=== PATIENT | male | born 1955 | race Caucasian/White ===

== ENCOUNTER → 2019-04-21 08:13 | Outpatient (BNVA) | payer MEDICARE, OTHER, SELFPAY | PROVIDERS: Family Provider Family Medicine; PCP Family Medicine; Visit Provider Anesthesiology | DX: M48.061 Spinal stenosis, lumbar region without neurogenic claudication (principal); M51.36 Other intervertebral disc degeneration, lumbar region; M25.551 Pain in right hip; F17.210 Nicotine dependence, cigarettes, uncomplicated; Z79.891 Long term (current) use of opiate analgesic | CPT/HCPCS: 99214 ==

== ENCOUNTER → 2019-06-29 12:59 | Outpatient (BNVA) | payer MEDICARE, OTHER, SELFPAY | PROVIDERS: Family Provider Family Medicine; PCP Family Medicine; Visit Provider Anesthesiology | DX: M48.061 Spinal stenosis, lumbar region without neurogenic claudication (principal); M51.36 Other intervertebral disc degeneration, lumbar region; M25.551 Pain in right hip; F17.220 Nicotine dependence, chewing tobacco, uncomplicated; Z79.891 Long term (current) use of opiate analgesic; Z71.6 Tobacco abuse counseling | CPT/HCPCS: 99214 ==

== ENCOUNTER → 2019-10-18 07:51 | Outpatient (BNVA) | payer MEDICARE, OTHER, SELFPAY | PROVIDERS: Family Provider Family Medicine; PCP Family Medicine; Visit Provider Anesthesiology | DX: M51.36 Other intervertebral disc degeneration, lumbar region (principal); M48.061 Spinal stenosis, lumbar region without neurogenic claudication; M54.9 Dorsalgia, unspecified; F17.220 Nicotine dependence, chewing tobacco, uncomplicated; Z79.891 Long term (current) use of opiate analgesic; Z71.6 Tobacco abuse counseling | CPT/HCPCS: 99213; 99214 ==

== ENCOUNTER → 2019-11-22 07:59 | Outpatient (BNVA) | payer MEDICARE, OTHER, SELFPAY | PROVIDERS: Family Provider Family Medicine; PCP Family Medicine; Visit Provider Anesthesiology | DX: M54.41 Lumbago with sciatica, right side (principal); M48.061 Spinal stenosis, lumbar region without neurogenic claudication; M54.9 Dorsalgia, unspecified; M51.36 Other intervertebral disc degeneration, lumbar region; Z96.89 Presence of other specified functional implants; F17.220 Nicotine dependence, chewing tobacco, uncomplicated; Z79.891 Long term (current) use of opiate analgesic | CPT/HCPCS: 99213; 99214 ==

== ENCOUNTER → 2020-01-19 09:12 | Outpatient (BNVA) | payer MEDICARE, OTHER, SELFPAY | PROVIDERS: Family Provider Family Medicine; PCP Family Medicine; Visit Provider Anesthesiology | DX: M51.36 Other intervertebral disc degeneration, lumbar region (principal); M48.061 Spinal stenosis, lumbar region without neurogenic claudication; M54.9 Dorsalgia, unspecified; F17.220 Nicotine dependence, chewing tobacco, uncomplicated; Z79.891 Long term (current) use of opiate analgesic | CPT/HCPCS: 99212; 99214 ==

== ENCOUNTER → 2020-03-19 07:55 | Outpatient (BNVA) | payer MEDICARE, OTHER, SELFPAY | PROVIDERS: Family Provider Family Medicine; PCP Family Medicine; Visit Provider Anesthesiology | DX: M48.061 Spinal stenosis, lumbar region without neurogenic claudication (principal); M51.36 Other intervertebral disc degeneration, lumbar region; M54.9 Dorsalgia, unspecified; F17.220 Nicotine dependence, chewing tobacco, uncomplicated; Z79.891 Long term (current) use of opiate analgesic | CPT/HCPCS: 99212; 99214 ==

== ENCOUNTER → 2020-05-22 07:40 | Outpatient (BNVA) | payer MEDICARE, OTHER, SELFPAY | PROVIDERS: Family Provider Family Medicine; PCP Family Medicine; Visit Provider Anesthesiology | DX: M48.061 Spinal stenosis, lumbar region without neurogenic claudication (principal); M51.36 Other intervertebral disc degeneration, lumbar region; M54.9 Dorsalgia, unspecified; F17.220 Nicotine dependence, chewing tobacco, uncomplicated; Z79.891 Long term (current) use of opiate analgesic | CPT/HCPCS: 99213 ==

== ENCOUNTER → 2020-07-23 07:54 | Outpatient (BNVA) | payer MEDICARE, OTHER, SELFPAY | PROVIDERS: Family Provider Family Medicine; PCP Family Medicine; Visit Provider Anesthesiology | DX: M48.061 Spinal stenosis, lumbar region without neurogenic claudication (principal); M51.36 Other intervertebral disc degeneration, lumbar region; M54.9 Dorsalgia, unspecified; F17.220 Nicotine dependence, chewing tobacco, uncomplicated; Z96.89 Presence of other specified functional implants; Z79.891 Long term (current) use of opiate analgesic | CPT/HCPCS: 99213 ==

== ENCOUNTER → 2020-08-15 10:05 | Outpatient (BNVA) | payer MEDICARE, OTHER, SELFPAY | PROVIDERS: Family Provider Family Medicine; PCP Family Medicine; Visit Provider Anesthesiology | DX: G89.29 Other chronic pain (principal); M54.9 Dorsalgia, unspecified; M48.061 Spinal stenosis, lumbar region without neurogenic claudication; M51.36 Other intervertebral disc degeneration, lumbar region; F17.220 Nicotine dependence, chewing tobacco, uncomplicated; Z79.891 Long term (current) use of opiate analgesic | CPT/HCPCS: 62323; J1040; J3490 ==

== ENCOUNTER → 2020-09-25 07:58 | Outpatient (BNVA) | payer MEDICARE, OTHER, SELFPAY | PROVIDERS: Family Provider Family Medicine; PCP Family Medicine; Visit Provider Anesthesiology | DX: M48.061 Spinal stenosis, lumbar region without neurogenic claudication (principal); M51.36 Other intervertebral disc degeneration, lumbar region; M54.9 Dorsalgia, unspecified; F17.220 Nicotine dependence, chewing tobacco, uncomplicated; Z79.891 Long term (current) use of opiate analgesic | CPT/HCPCS: 99213 ==

== ENCOUNTER → 2020-11-26 08:01 | Outpatient (BNVA) | payer MEDICARE, OTHER, SELFPAY | PROVIDERS: Family Provider Family Medicine; PCP Family Medicine; Visit Provider Anesthesiology | DX: M48.061 Spinal stenosis, lumbar region without neurogenic claudication (principal); M51.36 Other intervertebral disc degeneration, lumbar region; Z87.891 Personal history of nicotine dependence; Z79.891 Long term (current) use of opiate analgesic | CPT/HCPCS: 99213 ==

== ENCOUNTER → 2021-01-23 10:49 | Outpatient (BNVA) | payer MEDICARE, OTHER, SELFPAY | PROVIDERS: Family Provider Family Medicine; PCP Family Medicine; Visit Provider Anesthesiology | DX: Z02.89 Encounter for other administrative examinations (principal); M48.061 Spinal stenosis, lumbar region without neurogenic claudication; M51.36 Other intervertebral disc degeneration, lumbar region; Z79.891 Long term (current) use of opiate analgesic; Z87.891 Personal history of nicotine dependence | CPT/HCPCS: 99213 ==

== ENCOUNTER 2021-02-21 10:18 | Outpatient (CLI) | payer MEDICARE, OTHER, SELFPAY ==
--- NOTE | 2021-02-21 10:30 | XR_ITS ---
WS: [id number] Exam: XR hip RT 2-3V wo/w pel* [id number] Date/Time of Exam: 02/21/2021 10:41 AM Reason For Exam: RIGHT HIP PAIN No acute fracture or dislocation. End stage osteoarthritis with hbgl-th-yiti. Subcortical cyst format ion in the femoral head and the acetabulum. Soft tissues are unremarkable. XR/XR hip RT 2-3V wo/w pel* [id number] IMPRESSION: 1. Advanced osteoarthritis with nolo-qa-mcut articulation. No fracture or dislo cation.
== END 2021-02-21 10:19 | disposition home or self-care (01) ==
PROVIDERS: PCP Family Medicine; Visit Provider Family Medicine
DX: M16.11 Unilateral primary osteoarthritis, right hip (principal)
CPT/HCPCS: 73502

== ENCOUNTER → 2021-04-10 10:39 | Outpatient (BNVA) | payer MEDICARE, OTHER, SELFPAY | PROVIDERS: PCP Family Medicine; Visit Provider Anesthesiology | DX: G89.29 Other chronic pain (principal); M48.061 Spinal stenosis, lumbar region without neurogenic claudication; M51.36 Other intervertebral disc degeneration, lumbar region; M25.551 Pain in right hip; Z79.891 Long term (current) use of opiate analgesic | CPT/HCPCS: 99214 ==

== ENCOUNTER → 2021-05-19 07:58 | Outpatient (BNVA) | payer MEDICARE, OTHER, SELFPAY | PROVIDERS: PCP Family Medicine; Referring Provider Anesthesiology; Visit Provider Specialist | DX: G89.29 Other chronic pain; M16.11 Unilateral primary osteoarthritis, right hip | CPT/HCPCS: 73502 ==

== ENCOUNTER → 2021-06-30 14:06 | Outpatient (BNVA) | payer MEDICARE, OTHER, SELFPAY | PROVIDERS: PCP Family Medicine; Visit Provider Internal Medicine Cardiovascular Disease | DX: I25.10 Atherosclerotic heart disease of native coronary artery without angina pectoris (principal); I10 Essential (primary) hypertension; E78.5 Hyperlipidemia, unspecified | CPT/HCPCS: 99204 ==

== ENCOUNTER 2021-07-15 10:53 | Observation (INO) | payer MEDICARE, OTHER, SELFPAY ==
--- NOTE | 2021-07-10 08:19 | ECG_ITS ---
[facility] Test Date: 2021-07-10 Pat Name: Andrew Salinas Department: Room: Gender: Male Car Parker: : 1955 Requested By: Alvin Pagan Order Number: [id number] Aaron MD: Duncan Nevarez M.D. Measurements Intervals [place] Rate: 87 P: 59 ME: 123 QRS: -26 QRSD: 90 T: 29 QT: 355 QTc: 429 Interpretive Statements SINUS RHYTHM BORDERLINE LEFT AXIS DEVIATION [QRS AXIS < -20] No previous ECG available for comparison Electronically Signed On 07-10-2021 16:16:04 CDT by Duncan Nevarez M.D. [id number]
[2021-07-10 08:31] VITALS: BMI 34.7
[2021-07-10 09:57] LABS: Alanine Aminotransferase 12 U/L (0-41); Albumin Level 4.4 g/dL (3.5-5.2); Alkaline Phosphatase 85 IU/L (40-130); Aspartate Amino Transferase 17 U/L (0-40); Blood Urea Nitrogen 12 mg/dL (8-23); Calcium 9.9 mg/dL (8.5-10.5); Carbon Dioxide 27 mmol/L (22-29); Chloride 101 mmol/L (98-107); Globulin 2.8 g/dL (1.3-4.6); Glomerular Filtration Rate 83.9 mL/min (90-130); Glucose 151 mg/dL (65-115); Osmolality Calculated 295 mOsm/kg (285-295); Sodium 141 mmol/L (136-145); Total Bilirubin 0.6 mg/dL (0.15-1.2); Total Protein 7.2 g/dL (6.6-8.7)
[2021-07-10 10:10] LABS: Basophils # 0.1 10^3/uL (0.0-0.1); Basophils % 0.7 %; Eosinophils # 0.2 10^3/uL (0.0-0.8); Eosinophils % 2.3 %; Hematocrit 48.1 % (42.0-52.0); Hemoglobin 15.6 g/dL (11.7-16.6); Lymphocytes # 1.4 10^3/uL (0.8-4.8); Lymphocytes % 18.1 %; Mean Corpuscular HGB Conc 32.4 g/dL (30.0-36.0); Mean Corpuscular Hemoglobin 29.7 pg (28.0-34.0); Mean Corpuscular Volume 91.6 fl (80-94); Mean Platelet Volume 10.9 fL (7.4-10.4); Monocytes # 0.8 10^3/uL (0.2-0.9); Monocytes % 10.5 %; Neutrophils # 5.21 10^3/uL (1.8-7.7); Neutrophils % 67.9 %; Nucleated Red Blood Cells % 0 %; Platelet Count 295 10^3/cmm (130-400); Red Blood Count 5.25 10^6/uL (4.1-5.3); Red Cell Distribution Width 13.2 % (12.1-15.1); White Blood Count 7.7 10^3/uL (4.0-10.0)
[2021-07-10 10:31] LABS: Add Urine Microscopic? YES; Bacteria Urine TRACE /hpf; Bilirubin Urine Neg (Negative); Blood Urine 2+ (Negative); Glucose Urine UA Norm (Normal); Ketones Urine Negative (Negative); Leukocyte Esterase Urine Negative (Negative); Mucus Urine TRACE /hpf; Nitrate Urine Negative (Negative); Protein Urine Neg (Negative); Specific Gravity, Urine 1.025 (1.005-1.030); Squamous Epithelial Cell Urine 0-4 /hpf (0-5); Urine Appearance Clear (CLEAR); Urine Color Yellow (Yellow); Urobilinogen Urine Norm (Negative); WBC Urine RARE /hpf (0-5); pH Urine 5 (5-7)
--- NOTE | 2021-07-10 16:56 | P.ANESASSM_ITS ---
Pre-Anesthetic Assessment Height/Weight: Height 1.63 m Weight 91.626 kg Preop Diagnosis: Primary osteoarthritis of Right Hip Operation Date: 07/15/21 07:00 Proposed Procedures p Total Hip [id number]/right hip osteoarthristis M16.9(Right) - Radha Carter MD Was Beta Rikki taken within 24 hours: Yes Was Clonidine taken within 24 hours: N/A Social Tobacco (Chewing tobacco ) and No alcohol Exam alert, oriented x 3, clear to auscultation bilaterally and regular rate & rhythm Airway Submandibular: within normal limits Cervical ROM: Other (Limited ROM ) Mallampati: Class II Dentition: chipped Comments: Comments: Missing teeth Poor dentition History/ROS No significant complaints CV/HEM Coronary Artery Disease (s/p cardiac stents ) and Myocardial Infarction (Hx of [place] in 2007 ) METS > 4 Dyslipidemia EKG 07/10/21 ?? Interpretive Statements SINUS RHYTHM BORDERLINE LEFT AXIS DEVIATION? [QRS AXIS < -20] No previous ECG available for comparison Electronically Signed On 07-10-2021 16:16:04 CDT by Duncan Nevarez M.D. [email or web address] None reported Hepatic None reported GI Gastroesophageal Reflux Disease Metabolic None [place] [facility] [place] Chronic hip pain Spinal cord stimulator Neuropsych None reported Anesthetic Plan ASA status: 3 (66 year old male w/ hx of CAD with good functional capacity s/p CA stents, chewing tobacco use, DLD , OA, and DDD. ) Anesthesia: Anesthesia Evaluation Other: We discussed risk and benefits of general vs spinal anesthesia including DVT risk, infection, paralysis/catastrophic nerve injury, back bruising/pain, PDPH, conversion to general in case of spinal, PONV, sore throat (sometimes severe), corneal abrasion, positioning and peripheral nerve injuries, life threatening allergic reaction, post operative ICU admission requiring prolonged intubation, stroke, heart attack, , post operative delirium and/or post operative cognitive decline, and rare incidences of recall (under general anesthesia). Patient prefers general anesthesia. Risk of > 500 ml blood loss (7ml/kg in children): No Medications/Allergies Home Medications Medication Instructions Recorded Confirmed Last Taken Type aspirin 81 mg tablet,delayed 81 mg PO QDAY 04/20/19 07/03/21 07/09/21 History release (Adult Aspirin Regimen) atenolol 100 mg tablet 100 mg PO QAM 04/20/19 07/10/21 Unknown History atorvastatin 40 mg tablet (Lipitor) 40 mg PO QDAY 04/20/19 07/10/21 Unknown History clopidogrel 75 mg tablet 75 mg PO QDAY 04/20/19 07/10/21 07/09/21 History diphenhydramine HCl 25 mg capsule 25 mg PO DAILY PRN cap 04/20/19 07/10/21 U nknown History (Allergy (diphenhydramine)) amlodipine 10 mg-olmesartan 40 mg 1 tab PO QDAY 04/21/19 07/10/21 07/09/21 History tablet morphine 30 mg tablet,extended 30 mg PO Q8H 30 Days #90 tab 04/10/21 07/10/21 Unknown Rx release morphine 30 mg tablet,extended 30 mg PO Q8H 30 Days #90 tab 04/10/21 07/10/21 Unknown Rx release metoprolol succinate 100 mg 100 mg PO DAILY tab 06/30/21 07/10/21 Unknown History tablet,extended release 24 hr metformin 1,000 mg tablet 1,000 mg PO BID 07/10/21 07/10/21 Unknown History Allergies Allergy/AdvReac Type Severity Reaction Status Date / Time No Known Allergies Allergy Verified 07/03/21 09:05 PFS Anesthesia Medical History Chronic right hip pain DDD (degenerative disc disease), lumbar Encounter for long-term use of opiate analgesic Spinal cord stimulator status Spinal stenosis of lumbar region Tobacco chew use Surgical History S/P insertion of spinal cord stimulator DR. JIMENEZ 03/21/2012 S/P knee replacement LEFT-2014 S/P knee surgery Status post lumbar laminectomy Status post lumbar spine surgery for decompression of spinal cord DR JIMENEZ 09/22/2012 L3-L4, L4-L5 Family History Grandmother Dementia Father Lung disease Suicide Family/Other Suicide Other Hypertension Denies family history of Diabetes CAD (coronary artery disease) Clotting disorder Chronic kidney disease (CKD) Anesthesia complication Bleeding disorder Cancer Stroke Social History Smoking and tobacco status: never smoked Alcohol intake: never Marital status: History of recent travel: No Data Anesthesia : 07/10/21 08:50 07/10/21 08:50 Short CBC 07/10/21 Range/Units 08:50 WBC 7.7 (4.0-10.0) 10^3/uL Hgb 15.6 (11.7-16.6) g/dL Hct 48.1 (42.0-52.0) % MCV 91.6 (80-94) fl Plt Count 295 (130-400) 10^3/cmm Neut % (Auto) 67.9 % Neut # (Auto) 5.21 (1.8-7.7) 10^3/uL BMP 07/10/21 08:50 Sodium 141 Potassium 4.0 Chloride 101 Carbon Dioxide 27 BUN 12 Creatinine 0.9 Glucose 151 H Calcium 9.9 Liver Function 07/10/21 Range/Units 08:50 Total Bilirubin 0.6 (0.15-1.2) mg/dL AST 17 (0-40) U/L ALT 12 (0-41) U/L Alkaline Phosphatase 85 (40-130) IU/L Albumin 4.4 (3.5-5.2) g/dL Urine 07/10/21 Range/Units 09:10 Urine Color Yellow (Yellow) Urine Appearance Clear (CLEAR) Urine pH 5 (5-7) Ur Specific Spencer 1.025 (1.005-1.030) Urine Protein Neg (Negative) Urine Glucose (UA) Norm (Normal) Urine Ketones Negative (Negative) Urine Nitrate Negative (Negative) Urine Bilirubin Neg (Negative) Ur Leukocyte Esterase Negative (Negative) Urine RBC None (0-2) /hpf Urine WBC Rare (0-5) /hpf Cardiac Studies: No Data to Display
[2021-07-15] VITALS (26 sets, daily range): BP systolic 93–146; BP diastolic 56–100; PULSE 70–100; RESP 14–19; TEMP 36.1–37.3; O2SAT 91–100
[2021-07-15 06:27] LABS: Glucose Point of Care 153 mg/dL (70-110)
[2021-07-15] MEDS: sodium chloride 0.9% 1,000 ML 30 ML IV (06:36)
[2021-07-15] MEDS: acetaminophen 1,000 MG/100 ML PIGGYBACK 400 MG IV ×3 (06:36→21:38)
[2021-07-15] MEDS: CELEcoxib 200 mg Capsule 400 MG PO (06:37)
--- NOTE | 2021-07-15 06:53 | W.PM.OPSUD ---
Surgery/Procedure H&P Update DATE OF PROCEDURE: July 15, 2021 DATE H&P PERFORMED: 07/03/21 H&P UPDATE INFORMATION: I have reviewed H&P completed within last 30 days, I have examined patient prior to procedure, No changes to prior documentation and H&P is in [facility] EMR on date indicated PREOP DIAGNOSIS: Primary osteoarthritis of Right Hip PLANNED PROCEDURE: Operation Date: 07/15/21 07:00 Proposed Procedures p Total Hip [id number]/right hip osteoarthristis M16.9(Right) - Radha Carter MD Related Problem List Diagnoses (1) Primary osteoarthritis of right hip:
--- NOTE | 2021-07-15 07:25 | P.ANESUD_ITS ---
Pre-Anesthetic Update Pre-Anesthetic Assessment: Date of Surgery/Procedure: 07/15/21 Preop Deb gnosis: Primary osteoarthritis of Right Hip Proposed Procedure: Operation Date: 07/15/21 07:00 Proposed Procedures p Total Hip [id number]/right hip osteoarthristis M16.9(Right) - Radha Carter MD Any changes to Pre-Anesthetic Assessment?: No Last Intake: Intake Last Liquid Date 07/14/21 Last Liquid Time 18:00 Last Solid Date 07/14/21 Last Solid Time 18:00 Vitals: Temperature 97.7 F 07/15/21 06:11 Temperature Source Temporal Artery S can 07/15/21 06:11 Pulse Rate 70 07/15/21 06:11 Pulse Rhythm 07/15/21 06:11 Pulse Strength 3+ Normal 07/15/21 06:11 Respiratory Rate 18 07/15/21 06:11 Blood Pressure 109/69 07/15/21 06:11 Blood Pressure Donna n 82 07/15/21 06:11 Pulse Oximetry 100 07/15/21 06:11 Oxygen Delivery Me thod 07/15/21 06:11 Exam: Pre-Anes Outpt Exam: alert, oriented x 3, clear to auscultation bilaterally and regular rate & rhythm Cardiac Studies: No Data to Display
[2021-07-15] MEDS: vancomycin 1,000 MG SDV 1000 MG XX (08:01)
[2021-07-15] MEDS: ceFAZolin 1,000 mg SDV 1000 MG IRRIGATION (08:03)
--- NOTE | 2021-07-15 10:47 | XRR_ITS ---
PROCEDURE INFORMATION: Exam: XR Pelvis Exam date and time: 07/15/2021 11:04 AM Age: 66 years old Clinical indication: Device placement; Other: RT migue; Prior surgery; Surgery date: Post-operative (0-2 days); Additional info: S/P RT migue TECHNIQUE: Imaging protocol: XR pelvis. Views: 1 or 2 view. COMPARISON: CR XR hip RT 2-3V wo/w pel* [id number] 05/19/2021 8:07 AM FINDINGS: Tubes, catheters and devices: Stable right pacemaker. Bones/joints: Interval right total hip replacement with postoperative soft tissue emphysema. Soft tissues: See Bones/joints finding. XR/XR pelvis 1-2V* [id number] IMPRESSION: Interval right total hip replacement with postoperative soft tissue emphysema.
--- NOTE | 2021-07-15 10:55 | P.OP_ITS ---
Operative Report Date of procedure: July 15, 2021 Pre-op diagnosis: Primary osteoarthritis of Right Hip with large osteophytes and contracture both hip and knee Post-op diagnosis: Primary osteoarthritis of Right Hip with large osteophytes and contracture both hip and knee Post-op findings: Severe deformity of the femoral head with osteophytes and contracture of the hip. Also, flexion contracture of the knee. Procedure done: Complex Right total hip arthroplasty Implants: The [employer] total hip system with the following implants: A 52 mm by E Trident II solid back acetabular shell, an MDM cementless liner 42 mm inner diameter by E alpha code and Accolade II size 5 with 127 degree neck angle hip stem with a 28 mm outer diameter +4 mm neck offset and a yazdanism X3 insert size 28 mm inner diameter by 42E Specimens removed/disposition: Femoral head, disposed of Surgeon: Radha Carter Engineering Laboratory Technician: [facility] operating room technicians Anesthesia: General (Intubated, ASA 3) Estimated blood loss (mL): 500 IV fluids (mL): 1,500 Urine output (mL): 300 Complications: None Findings: Severe osteoarthritis with deformity of the femoral head, large osteophytes, almost zero motion of the hip. Inability to fully extend the knee. Following the surgical procedure, the hip was stable at 90 degrees of flexion with 70 degrees of internal rotation and 20 degrees of adduction. It was also stable to external rotation and toe hang. Condition: stable Disposition: PACU (Then to floor for postoperative rehabilitation) Brief History: This 66-year-old gentleman presented with complaints of inability to ambulate. He had severe degenerative osteoarthritis of the right hip with hip flexion contracture, large osteophytes, and a knee flexion contracture as well. Activities of daily living are severely limited. After discussion, the patient wished to proceed with total hip arthroplasty. Risks and complications were discussed with him. Preoperatively, consents were signed. Questions were answered, and the surgical procedure was scheduled. Procedure: Patient was brought to the operating theater.? He was transferred to the operating room table and subsequently administered general intubated, ASA 3.? Fo llowing administration of adequate anesthesia, the patient was placed in full lateral position and held in position with a pegboard.? The patient's right lower extremity was then prepped and draped in usual fashion utilizing DuraPrep.? It was draped free.? Following prepping and draping, a surgical pause was performed. At the time of surgical pause, we identified the site and side of surgery.? We also identified the patient and preoperative surgical markings.? Confirmation was made of equipment availability.? Additionally, the patient's preoperative IV antibiotic, Ancef 2 g, was confirmed as being given in a timely fashion and being the appropriate antibiotic.? He received TXA 1 g preoperatively as well. Following the surgical pause, an incision was made centering over the patient's greater trochanter continuing proximally and distally as necessary to allow access to the hip joint.? Dissection continued through skin and soft tissues using a scalpel, and hemostasis was obtained using electrocautery. The tensor fascia margoth was identified and incised longitudinally.? Sciatic nerve was identified and protected throughout the surgical procedure.? A Charnley U retractor was placed after the tensor fascia margoth had been incised longitudinally, and the sciatic nerve had been identified.? The piriformis muscle was identified and tagged. Piriformis muscle along with the remaining short external rotators were then incised from the posterior aspect of the hip joint. These were retracted posteriorly. ? The capsule was entered in a T-type fashion with the edges being tagged. Evaluation of the acetabulum demonstrated that there were large osteophytes circumferentially about the femoral head. The hip was unable to be dislocated or even moved much secondary to these osteophytes. An osteotome was used to remove these large osteophytes. The hip was then dislocated. Following hip dislocation, a femoral neck osteotomy was accomplished in the appropriate position. We then evaluated the acetabulum. The femur was retracted anteriorly.? Soft tissues were retracted and the labrum and further osteophytes were removed. We then began reaming.? We deepened the acetabulum utilizing a smaller reamer.? Evaluation of the acetabulum was accomplished, and we were able to ream to 51 mm to allow for a size 52 mm acetabular shell. The acetabular component was impacted into position. It was n oted that the acetabulum matched the bony anatomy, but there were still osteophytes posteriorly. These were left in place, however.? The cup was noted to seat nicely and had good fixation upon impact.? The MDM cementless liner was impacted into position and care was taken to assure that it completely seated.? Also, we confirmed that the acetabular insert was completely seated prior to addressing the femur. Attention was directed to the proximal femur.? The proximal femur was lifted out of the wound with difficulty.? A canal finder was passed, and we then used the reamer to lateralize.? We then began broaching. We broached sequentially and had excellent fit and fill with the size 6 Accolade II 127 degree femoral component.? A trial reduction was accomplished with a -4 mm offset femoral head once the size 6 broach was placed in position.? We then increased to a standard offset followed by a +4 mm offset. With this sequential increase in size, we were able to evaluate soft tissue tension. The +4 was felt to reestablish leg length and also give the best stability. The patient was stable with this construct, and it was not felt that we had increased her leg length.? With this in place, we had the above stabilities, and at that time, we felt that we had restored leg lengths.? We also felt that we had excellent stability noted above. Therefore, trial components were removed after the hip was dislocated.? The size 6 Accolade II 127 degree neck angle hip stem was impacted into position without difficulty and onto this was placed a +4 mm offset by 28 mm outer diameter femoral head inside of the MDM size 42E insert with a 28 mm inner diameter.? With this construct, we had the above-noted stability.? The stem was noted to seat nicely prior to placement of the femoral head.? The wound was copiously irrigated with Betadine.? At this time, with all components in appropriate position, the hip was reduced.? Following reduction of the prosthesis once again, we confirmed the stability of the hip.? Leg lengths were also felt to be satisfactory. Being satisfied with the prosthesis, attention was directed to closure.? Closure was accomplished with 0 Vicryl in the capsular tissues.? Piriformis was reattached with 0 Vicryl as well.? Tensor fascia margoth was closed with 0 Vicryl in an interrupted fashion.? The subcutaneous tissues were closed with 2-0 Monocryl.? Vancomycin powder and a Gelfoam thrombin mixture was placed into the wound as well.? The skin was closed with 4-0 Monocryl followed by Dermabond, Prineo, and OpSite.? The patient was placed in an abduction pillow.? He was returned the Recovery Room in a satisfactory condition and will be discharged to the floor for postoperative rehabilitation and pain management.? There were no complications. Related Problem List Diagnoses (1) Primary osteoarthritis of right hip:
--- NOTE | 2021-07-15 11:09 | SUR.PHASEI ---
1045 SCD TO LEFT LOWER EXTREMITY ON AND WORKING
[2021-07-15] MEDS: fentaNYL 50 mcg/mL INJ 2mL IVP (11:17)
[2021-07-15] MEDS: chlorhexidine gluconate 0.12% Btl 473 mL 30 ML MUCOUS MEM ×3 (12:48→20:19)
[2021-07-15] MEDS: amlodipine 10 mg Tablet PO (13:10)
[2021-07-15] MEDS: losartan 50 mg Tablet 100 MG PO (13:10)
[2021-07-15] MEDS: morphine IR 15 mg Tablet 30 MG PO ×2 (14:19→20:18)
--- NOTE | 2021-07-15 15:27 | ANE.PACU2 ---
Inpatient post-anesthesia follow up: Airway intact: Yes Vital signs: Temperature 98.5 F Pulse Rate 86 Respiratory Rate 18 Blood Pressure 111/70 Pulse Oximetry 99 Oxygen Delivery Me thod Nasal Cannula Oxygen Flow Rate 2 Fraction of Inspir ed Oxygen Hydration adequate: Yes Nausea and vomiting: No Pain level: 3 Mental status: Baseline
[2021-07-15] MEDS: mupirocin oint 22 gm 1 APPLIC NASAL (17:33)
[2021-07-15] MEDS: calcium carbonate 500 mg Chew Tablet 1000 MG PO (17:33)
[2021-07-15] MEDS: sennosides-docusate Tablet 2 TAB PO (17:34)
[2021-07-15] MEDS: CELEcoxib 200 mg Capsule PO (17:34)
[2021-07-15] MEDS: metformin 500 mg Tablet 1000 MG PO (17:34)
[2021-07-15] MEDS: iron polysaccharide complex 150 mg Capsule PO (17:34)
[2021-07-15] MEDS: oxyCODONE 5 mg IR Tab/Cap PO (17:37)
--- NOTE | 2021-07-15 18:40 | PC.NURSE ---
Patient arrived floor post procedure with c/o pain and wanting catheter out. He has been demanding to have catheter removed. Called physician and received orders. Will report to oncoming nurse.
[2021-07-15 19:50] LABS: Bilirubin Urine Neg (Negative); Blood Urine 3+ (Negative); Glucose Urine UA 2+ (Normal); Ketones Urine 1+ (Negative); Nitrate Urine Negative (Negative); Protein Urine Neg (Negative); Specific Gravity, Urine 1.015 (1.005-1.030); Urine Appearance Cloudy (CLEAR); Urine Color Yellow (Yellow); pH Urine 5 (5-7)
[2021-07-15 19:51] LABS: Add Urine Culture? Yes; Add Urine Microscopic? YES; Amorphous Sediment Urine 3+ /hpf; Bacteria Urine TRACE /hpf; Leukocyte Esterase Urine 1+ (Negative); Squamous Epithelial Cell Urine 0-4 /hpf (0-5); Urobilinogen Urine Norm (Negative); WBC Urine >100 /hpf (0-5)
[2021-07-15] MEDS: atorvastatin 40 mg Tablet PO (20:17)
[2021-07-15] MEDS: ciprofloxacin 500 mg Tablet 750 MG PO (20:18)
[2021-07-16] VITALS (7 sets, daily range): BP systolic 94–117; BP diastolic 60–66; PULSE 77–105; RESP 17–18; TEMP 36.7–36.8; O2SAT 86–97
[2021-07-16 02:03] LABS: Basophils % 0.1 %; Hematocrit 35.4 % (42.0-52.0); Hemoglobin 11.5 g/dL (11.7-16.6); Lymphocytes # 1.1 10^3/uL (0.8-4.8); Lymphocytes % 6.8 %; Mean Corpuscular HGB Conc 32.5 g/dL (30.0-36.0); Mean Corpuscular Hemoglobin 29.9 pg (28.0-34.0); Mean Corpuscular Volume 91.9 fl (80-94); Monocytes # 1.5 10^3/uL (0.2-0.9); Neutrophils # 13.98 10^3/uL (1.8-7.7); Neutrophils % 83.7 %; Nucleated Red Blood Cells % 0 %; Platelet Count 246 10^3/cmm (130-400); Red Blood Count 3.85 10^6/uL (4.1-5.3); Red Cell Distribution Width 13.2 % (12.1-15.1); White Blood Count 16.7 10^3/uL (4.0-10.0)
[2021-07-16 02:31] LABS: Anion Gap 18.7 (5-19); Blood Urea Nitrogen 27 mg/dL (8-23); Calcium 8.8 mg/dL (8.5-10.5); Carbon Dioxide 23 mmol/L (22-29); Chloride 101 mmol/L (98-107); Glomerular Filtration Rate 50.4 mL/min (90-130); Glucose 225 mg/dL (65-115); Osmolality Calculated 298 mOsm/kg (285-295); Potassium 4.7 mmol/L (3.5-5.1); Sodium 138 mmol/L (136-145)
[2021-07-16] MEDS: CELEcoxib 200 mg Capsule PO (05:31)
[2021-07-16] MEDS: acetaminophen 1,000 MG/100 ML PIGGYBACK 400 MG IV (05:31)
[2021-07-16] MEDS: calcium carbonate 500 mg Chew Tablet 1000 MG PO (09:04)
[2021-07-16] MEDS: metoprolol succinate ER (24 HR) 100 mg Tablet PO (09:04)
[2021-07-16] MEDS: multivitamin therapeutic Tablet 1 TAB PO (09:04)
[2021-07-16] MEDS: aspirin 325 mg EC Tablet PO (09:04)
[2021-07-16] MEDS: amlodipine 10 mg Tablet PO (09:05)
[2021-07-16] MEDS: losartan 50 mg Tablet 100 MG PO (09:05)
[2021-07-16] MEDS: morphine IR 15 mg Tablet 30 MG PO (09:05)
[2021-07-16] MEDS: metformin 500 mg Tablet 1000 MG PO (09:06)
[2021-07-16] MEDS: clopidogrel 75 mg Tablet PO (09:06)
[2021-07-16] MEDS: cholecalciferol (vitamin D3) 1,000 unit Tablet 1000 UNIT PO (09:06)
[2021-07-16] MEDS: iron polysaccharide complex 150 mg Capsule PO (09:06)
[2021-07-16] MEDS: ciprofloxacin 500 mg Tablet 750 MG PO (10:07)
[2021-07-16] MEDS: chlorhexidine gluconate 0.12% Btl 473 mL 30 ML MUCOUS MEM (10:10)
--- NOTE | 2021-07-16 11:21 | PC.CHAP ---
Pastoral Care Encounter/Spiritual Assessment Type of Contact [] Declined atg architect visit [] Patient/Family/Request visit [] Outpatient visit [] Follow-up visit [] Physician referral [] Code/Alert [x] Routine visit [] Staff referral [] Actively dying [] Patient sleeping [] Family support [] [x] Out of room [] Palliative care [] [] Receiving care in room [] Pre-surgical visit [] Trauma [] Long length of stay [] ICU visit [] Other: Relational/Emotional Strength [] Patient feels connected with others/family/visitors/staff [] Distress [] Loneliness/isolation [] Abandonment Spirituality of Patient [] Person of Kassie [] Attends Pentecostal of their [place]assie [] Believes in Prayer [] Reads Bible or Anabaptist materials [] There are Spiritual issues to be addressed [employer] Interventions [] Prayer [] Active listening [] Non-anxious presence [] Spiritual/emotional support [] Crisis/trauma care [] Spiritual counseling [] Bereavement support [] Provided bereavement packet [] Provided Bible/devotional materials [] Provided toy/stuffed animal, coloring book to patient or family member [] Provided Communion [] Anointing/[place] [] Salvation [] Completed spiritual assessment [] Other: Impact on Illness or Injury [] Angry [] Fearful [] Anxious [] Often cries [] Exhaustion [] Unable to work [] Unable to attend amish [] Unable to walk/stand [] Unable to read [] Unable to drive [] Unable to eat/drink [] Unable to sleep [] Unable to be with family [] Patient intubated [] Other: Summary Time spent with patient
[2021-07-16] MEDS: cefTRIAXone 1,000 MG in sodium chloride 0.9% (plus) 50 ML 100 MG IV (12:05)
[2021-07-16 12:53] LABS: Urine Appearance Hazy (CLEAR); Urine Color Yellow (Yellow)
[2021-07-16 12:54] LABS: Bilirubin Urine Neg (Negative); Blood Urine 2+ (Negative); Glucose Urine UA 2+ (Normal); Ketones Urine 1+ (Negative); Nitrate Urine Negative (Negative); Protein Urine Neg (Negative); pH Urine 5 (5-7)
[2021-07-16 12:55] LABS: Add Urine Microscopic? YES; Leukocyte Esterase Urine 2+ (Negative); Urobilinogen Urine Norm (Negative)
[2021-07-16 13:01] LABS: Mucus Urine 1+ /hpf; Renal Epithelial Cells Urine N /hpf
[2021-07-16 13:02] LABS: Add Urine Culture? No; Amorphous Sediment Urine TRACE /hpf; Other Casts Urine N /lpf; Other Crystals Urine N /hpf; Other Sediment, Urine N; Uric Acid Crystals Urine N /hpf
--- NOTE | 2021-07-16 13:46 | PM.DCS ---
Discharge Providers Date of Admission: 07/15/21 10:53 Date of Discharge: July 16, 2021 Attending Provider at Admission: Radha Carter MD Attending Provider at Discharge: Radha Carter MD Primary Care Provider: Kleber Angeles MD Diagnoses at Discharge Discharge Diagnosis (1) Primary osteoarthritis of right hip: Status: Acute (2) S/P total right hip arthroplasty: Status: Acute Permanent problem details: Date of procedure: July 15, 2021 Diagnosis: Primary osteoarthritis of Right Hip with large osteophytes and contracture both hip and knee Procedure done: Complex Right total hip arthroplasty Implants: The [employer] total hip system with the following implants: A 52 mm by E Trident II solid back acetabular shell, an MDM cementless liner 42 mm inner diameter by E alpha code and Accolade II size 5 with 127 degree neck angle hip stem with a 28 mm outer diameter +4 mm neck offset and a scientologist X3 insert size 28 mm inner diameter by 42E Reason for Visit Reason for Visit: M16.9/ osteoarthritis right hip Brief History: This 66-year-old gentleman presented with complaints of inability to ambulate.? He had severe degenerative osteoarthritis of the right hip with hip flexion contracture, large osteophytes, and a knee flexion contracture as well.? Activities of daily living are severely limited.? After discussion, the patient wished to proceed with total hip arthroplasty.? Risks and complications were discussed with him.? Preoperatively, consents were signed.? Questions were answered, and the surgical procedure was scheduled. Hospital Course Hospital Course This 66-year-old gentleman was admitted under observation status following same-day surgery for right total hip arthroplasty. On the first postoperative day, the patient was comfortable. He was neurologically intact. He was ambulatory. He had appropriate equipment at home, and he felt ready for discharge. Physical therapy was in agreement. The patient's diet was benign without significant swelling. He was neurologically intact. He was discharged home to follow-up with me in the office as previously scheduled. Physical Exam Const: COMMON NORMALS: no acute distress, average body habitus, patient oriented x3 and alert GENERAL APPEARANCE: cooperative and comfortable ORIENTATION/CONSCIOUSNESS: Yes awake HENMT: COMMON NORMALS: normocephalic and atraumatic HEAD & SCALP: normocephalic and atraumatic Eye: GENERAL EYE: appearance normal, both eyes and all related structures Chest: COMMONS NORMALS: normal inspection of the chest Resp: COMMON NORMALS: normal respiratory effort EFFORT & INSPECTION: Yes able to speak in complete sentences and Yes symmetric chest movement Extremity: RIGHT LOWER EXTREMITY: Yes hip joint Right hip: Yes inspection (Dressing dry and intact.), Yes palpation (No significant swelling or pain.), Yes ROM (Not evaluated secondary to surgery.) and Yes neurovascular exam (Intact distally.) Neuro: COMMON NORMALS: patient oriented x3 SENSORIUM/ORIENTATION: Yes alert Psych: COMMON NORMALS: mental status grossly normal APPEARANCE: Yes grossly normal ATTITUDE: Yes calm and Yes engaged ATTENTION/CONCENTRATION: Yes attention grossly intact Skin: COMMON NORMALS: no rashes or lesions noted GENERAL SKIN EXAM: no rashes or lesions noted Urinary Catheter Management: Islas: Cath Placed During This Visit: yes, but has since been removed by the nurse Reason for Continuing Indwelling Catheter: Acute Urinary Retention or Obstruction Urinary Catheter Date of Insertion: 07/15/21 Urinary Catheter Time of Insertion: 07:15 Date Urinary Catheter Removed: 07/16/21 Time Urinary Catheter Discontinued: 03:30 Discharge Data Studies Completed and Pending Completed Studies During Hospitalization Category Date Time Status XR pelvis 1-2V* [id number] Routine Exams 07/15/21 10:47 Completed Radiology Impressions Pelvis X-Ray 07/15/21 10:47 IMPRESSION: Interval right total hip replacement with postoperative soft tissue emphysema. Laboratory Results WBC 16.7 10^3/uL (4.0-10.0) H 07/16/21 01:25 RBC 3.85 10^6/uL (4.1-5.3) L 07/16/21 01:25 Hgb 11.5 g/dL (11.7-16.6) L 07/16/21 01:25 Hct 35.4 % (42.0-52.0) L 07/16/21 01:25 MCV 91.9 fl (80-94) 07/16/21 01:25 MCH 29.9 pg (28.0-34.0) 07/16/21 01:25 MCHC 32.5 g/dL (30.0-36.0) 07/16/21 01:25 RDW 13.2 % (12.1-15.1) 07/16/21 01:25 Plt Count 246 10^3/cmm (130-400) 07/16/21 01:25 MPV 11.0 fL (7.4-10.4) H 07/16/21 01:25 Neut % (Auto) 83.7 % 07/16/21 01:25 Lymph % (Auto) 6.8 % 07/16/21 01:25 [place] % (Auto) 9.0 % 07/16/21 01:25 Eos % (Auto) 0.0 % 07/16/21 01:25 Baso % (Auto) 0.1 % 07/16/21 01:25 Neut # (Auto) 13.98 10^3/uL (1.8-7.7) H 07/16/21 01:25 Lymph # (Auto) 1.1 10^3/uL (0.8-4.8) 07/16/21 01:25 [place] # (Auto) 1.5 10^3/uL (0.2-0.9) H 07/16/21 01:25 Eos # (Auto) 0.0 10^3/uL (0.0-0.8) 07/16/21 01:25 Baso # (Auto) 0.0 10^3/uL (0.0-0.1) 07/16/21 01:25 Nucleated RBC % (auto) 0 % 07/16/21 01:25 Nucleated RBCs # 0.0 /100WBC 07/16/21 01:25 Sodium 138 mmol/L (136-145) 07/16/21 01:25 Potassium 4.7 mmol/L (3.5-5.1) 07/16/21 01:25 Chloride 101 mmol/L (98-107) 07/16/21 01:25 Carbon Dioxide 23 mmol/L (22-29) 07/16/21 01:25 Anion Gap 18.7 (5-19) 07/16/21 01:25 BUN 27 mg/dL (8-23) H 07/16/21 01:25 Creatinine 1.4 mg/dL (0.7-1.2) H 07/16/21 01:25 GFR Calculation 50.4 mL/min (90-130) L 07/16/21 01:25 Glucose 225 mg/dL (65-115) H 07/16/21 01:25 POC Glucose 153 mg/dL (70-110) H 07/15/21 06:24 Calculated Osmolality 298 mOsm/kg (285-295) H 07/16/21 01:25 Calcium 8.8 mg/dL (8.5-10.5) 07/16/21 01:25 Total Bilirubin 0.6 mg/dL (0.15-1.2) 07/10/21 08:50 AST 17 U/L (0-40) 07/10/21 08:50 ALT 12 U/L (0-41) 07/10/21 08:50 Alkaline Phosphatase 85 IU/L (40-130) 07/10/21 08:50 Total Protein 7.2 g/dL (6.6-8.7) 07/10/21 08:50 Albumin 4.4 g/dL (3.5-5.2) 07/10/21 08:50 Globulin 2.8 g/dL (1.3-4.6) 07/10/21 08:50 Urine Color Yellow (Yellow) 07/16/21 11:35 Urine Appearance Hazy (CLEAR) A 07/16/21 11:35 Urine pH 5 (5-7) 07/16/21 11:35 Ur Specific [place] 1.020 (1.005-1.030) 07/16/21 11:35 Urine Protein Neg (Negative) 07/16/21 11:35 Urine Glucose (UA) 2+ (Normal) H 07/16/21 11:35 Urine Ketones 1+ (Negative) H 07/16/21 11:35 Urine Blood 2+ (Negative) H 07/16/21 11:35 Urine Nitrate Negative (Negative) 07/16/21 11:35 Urine Bilirubin Neg (Negative) 07/16/21 11:35 Urine Urobilinogen Norm mg/dL (Negative) 07/16/21 11:35 Ur Leukocyte Esterase 2+ (Negative) H 07/16/21 11:35 Urine RBC None /hpf (0-2) 07/16/21 11:35 Urine WBC None /hpf (0-5) 07/16/21 11:35 Ur Squamous Epith Cells None /hpf (0-5) 07/16/21 11:35 Ur Transition Epith Cell None /hpf 07/16/21 11:35 Ur Renal Epithelial Cell N /hpf 07/16/21 11:35 Calcium Oxalate Crystal None /hpf 07/16/21 11:35 Uric Acid Crystals N /hpf 07/16/21 11:35 Triple Phos Crystals None /hpf 07/16/21 11:35 Other Crystals N /hpf 07/16/21 11:35 Amorphous Sediment Trace /hpf 07/16/21 11:35 Urine Bacteria None /hpf (NONE) 07/16/21 11:35 Hyaline Casts None /lpf 07/16/21 11:35 Fine Granular Casts None /lpf 07/16/21 11:35 Coarse Granular Casts None /lpf 07/16/21 11:35 RBC Casts None /lpf 07/16/21 11:35 Other Casts N /lpf 07/16/21 11:35 Urine Mucus 1+ /hpf 07/16/21 11:35 Urine Trichomonas None /hpf 07/16/21 11:35 Urine Yeast None /hpf 07/16/21 11:35 Urine Sperm None /hpf 07/16/21 11:35 Ur Oval Fat Bodies None /hpf 07/16/21 11:35 Vitals Last Vital Signs Temp 98.1 F 07/16/21 12:00 Pulse 77 07/16/21 12:00 Resp 18 07/16/21 12:00 BP 99/66 07/16/21 12:00 Pulse Ox 97 07/16/21 12:00 Discharge Plan Discharge Patient Disposition: Home Condition: Stable Prescriptions: New oxycodone 5 mg Tablet 5 mg PO Q4H PRN (Reason: Moderate Pain) 7 Days Qty: 30 0RF acetaminophen 500 mg Tablet 1,000 mg PO Q8H Qty: 0 0RF ciprofloxacin HCl 500 mg Tablet 750 mg PO BID@0900,2100 10 Days Qty: 20 0RF aspirin 325 mg Tablet,Delayed Release (Dr/Ec) 325 mg PO DAILY Qty: 0 0RF celecoxib 200 mg Capsule 200 mg PO DAILY 30 Days 0RF Continued amlodipine-olmesartan 10-40 mg tablet 1 tab PO QDAY 0RF clopidogrel 75 mg tablet 75 mg PO QDAY 0RF diphenhydramine HCl [Allergy (diphenhydramine)] 25 mg capsule 25 mg PO DAILY PRN (Reason: sob) 0RF atorvastatin [Lipitor] 40 mg tablet 40 mg PO QDAY 0RF metoprolol succinate 100 mg tablet extended release 24 hr 100 mg PO DAILY 0RF morphine 30 mg tablet extended release 30 mg PO Q8H 30 Days Qty: 90 0RF Rx Instructions: fill on or after 05/11/21 metformin 1,000 mg Tablet 1,000 mg PO BID 0RF Held aspirin [Adult Aspirin Regimen] 81 mg tablet,delayed release (DR/EC) 81 mg PO QDAY 0RF Hold Instructions: Resume on 08/13/21. You may resume 81 mg aspirin after completion of 1 month of full-strength 325 mg aspirin daily. Discharge Orders: Discharge Order (Routine); Ordered 07/16/21 Ordered By: Radha Carter Other Ambulatory Orders: Physical Therapy Eval and Treat Outpatient (Order) Timeframe: 3 Weeks Facility: [facility] - Location: Physical Therapy Ordered By: Radha Carter Referrals: Radha Carter MD [Physician] - 07/28/21 8:45 am Discharge Diet: Advance as tolerated and Usual diet Discharge Activity: Resume usual activity, Increase activity as tolerated, Limit activity as instructed and As per PT/OT instructions Patient Instructions: Opioid Safety Activity Restrictions/Additional Instructions: Posterior hip precautions. Ice to operative hip. Continue home exercises until you begin therapy at the [facility]. Discharge Attestations Time Spent in Discharge Care*: greater than 30 min Specific Discharge Activities: educating patient, educating and/or supporting family/caregiver, discussing with case fitter/social workers/dc planners, documenting/other paperwork and evaluating patient/reviewing data Quality Metrics Clinical Quality Measures [ No reported AMI, CVA or VTE this stay] Coding Level of Care Code Acute [facility] DC note Diagnoses Primary osteoarthritis of right hip M16.11 S/P total right hip arthroplasty Z96.641
== END 2021-07-16 14:25 | disposition home or self-care (01) ==
LOC: MEDSURG 10:55
PROVIDERS: Admitting Provider Specialist; PCP Family Medicine; Visit Provider Specialist
PROC: (CPT 27130; principal; 2021-07-15 07:00)
DX: M16.11 Unilateral primary osteoarthritis, right hip (principal); Z79.82 Long term (current) use of aspirin; F17.220 Nicotine dependence, chewing tobacco, uncomplicated; I25.10 Atherosclerotic heart disease of native coronary artery without angina pectoris; Z95.5 Presence of coronary angioplasty implant and graft; I25.2 Old myocardial infarction; K21.9 Gastro-esophageal reflux disease without esophagitis
CPT/HCPCS: 27130; 36415; 36416; 51702; 72170; 80048; 80053; 81001; 82962; 85025; 93005; 97110; 97116; 97161; 97165; 97530; C1776; G0378; J0690; J0696; J1100; J1170; J2250; J2370; J2405; J2704; J2710; J3010; J3370; J3490; J7030

== ENCOUNTER → 2021-07-28 08:39 | Outpatient (BNVA) | payer MEDICARE, OTHER, SELFPAY | PROVIDERS: PCP Family Medicine; Visit Provider Specialist | DX: Z96.641 Presence of right artificial hip joint (principal) | CPT/HCPCS: 73502 ==

== ENCOUNTER 2021-07-31 06:00 | Outpatient (RCR) | payer MEDICARE, OTHER, SELFPAY | END 2021-08-02 23:59 | disposition home or self-care (01) | LOC: SPT 06:00 | PROVIDERS: PCP Family Medicine; Referring Provider Specialist; Visit Provider Specialist | DX: M16.11 Unilateral primary osteoarthritis, right hip (principal) | CPT/HCPCS: 97161 ==

== ENCOUNTER → 2021-09-15 12:53 | Outpatient (BNVA) | payer MEDICARE, OTHER, SELFPAY | PROVIDERS: PCP Family Medicine; Visit Provider Specialist | DX: Z96.641 Presence of right artificial hip joint (principal) | CPT/HCPCS: 73502 ==

== ENCOUNTER → 2022-01-19 10:42 | Outpatient (BNVA) | payer MEDICARE, OTHER, SELFPAY | PROVIDERS: PCP Family Medicine; Visit Provider Specialist | DX: M16.11 Unilateral primary osteoarthritis, right hip (principal); Z96.641 Presence of right artificial hip joint | CPT/HCPCS: 73502; 99213 ==

== ENCOUNTER 2022-03-21 19:31 | Emergency (ER) | payer MEDICARE, OTHER, SELFPAY ==
[2022-03-21 19:37] VITALS: BP 130/83; PULSE 117; RESP 20; TEMP 36.6; O2SAT 96; BMI 35.5
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
--- NOTE | 2022-03-21 21:06 | PC.NURSE ---
patient transported from [facility] in wheelchair and placed in c-collar . patient helped into bed and placed on assistant superintendent. patient instructed of need to not eat or drink until further notice. patient denies questions/concerns at this time. patient in no obivous distress. side rails raised x 2 and yoana nl ow, locked position. call light withinr each.
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
[2022-03-21 21:25] LABS: Basophils # 0.1 10^3/uL (0.0-0.1); Basophils % 0.7 %; Eosinophils # 0.2 10^3/uL (0.0-0.8); Eosinophils % 1.2 %; Hematocrit 49.8 % (42.0-52.0); Hemoglobin 16.6 g/dL (11.7-16.6); Lymphocytes # 1.4 10^3/uL (0.8-4.8); Lymphocytes % 11.1 %; Mean Corpuscular HGB Conc 33.3 g/dL (30.0-36.0); Mean Corpuscular Volume 89.9 fl (80-94); Mean Platelet Volume 10.2 fL (7.4-10.4); Monocytes % 7.5 %; Neutrophils # 10.25 10^3/uL (1.8-7.7); Neutrophils % 78.9 %; Nucleated Red Blood Cells % 0 %; Platelet Count 327 10^3/cmm (130-400); Red Blood Count 5.54 10^6/uL (4.1-5.3); Red Cell Distribution Width 12.9 % (12.1-15.1)
[2022-03-21 21:45] LABS: Alanine Aminotransferase 13 U/L (0-41); Albumin Level 4.2 g/dL (3.5-5.2); Alkaline Phosphatase 91 U/L (40-130); Anion Gap 16.1 (5-19); Aspartate Amino Transferase 19 U/L (0-40); Blood Urea Nitrogen 16 mg/dL (8-23); Calcium 9.4 mg/dL (8.5-10.5); Carbon Dioxide 26 mmol/L (22-29); Chloride 100 mmol/L (98-107); Globulin 3.2 g/dL (1.3-4.6); Glomerular Filtration Rate 54.7 mL/min (90-130); Glucose 209 mg/dL (65-115); Osmolality Calculated 293 mOsm/kg (285-295); Potassium 4.1 mmol/L (3.5-5.1); Sodium 138 mmol/L (136-145); Total Bilirubin 0.5 mg/dL (0.15-1.2); Total Protein 7.4 g/dL (6.6-8.7)
[2022-03-21] MEDS: iohexol 350 mg/mL 500 mL Btl (per mL) IV (22:00)
== END 2022-03-21 22:25 | disposition short-term general hospital (02) ==
PROVIDERS: Emergency Provider Nurse Practitioner Family; PCP Family Medicine
DX: S12.190A Other displaced fracture of second cervical vertebra, initial encounter for closed fracture (principal); S80.12XA Contusion of left lower leg, initial encounter; V53.5XXA Driver of pick-up truck or van injured in collision with car, pick-up truck or van in traffic accident, initial encounter
CPT/HCPCS: 70496; 70498; 72125; 73502; 80053; 85025; 99285; Q9967

== ENCOUNTER → 2022-10-20 15:20 | Outpatient (BNVA) | payer MEDICARE, OTHER, SELFPAY | PROVIDERS: PCP Family Medicine; Visit Provider Family Medicine | DX: R35.0 Frequency of micturition (principal); Z13.220 Encounter for screening for lipoid disorders; E11.9 Type 2 diabetes mellitus without complications; Z51.81 Encounter for therapeutic drug level monitoring | CPT/HCPCS: 80053; 80061; 83036; 83721; 84153; 85025 ==

== ENCOUNTER → 2022-11-26 15:51 | Outpatient (BNVA) | payer MEDICARE, OTHER, SELFPAY | PROVIDERS: PCP Family Medicine; Visit Provider Family Medicine | DX: R21 Rash and other nonspecific skin eruption (principal) | CPT/HCPCS: 87529; 87530 ==

== ENCOUNTER → 2023-01-20 09:02 | Outpatient (BNVA) | payer MEDICARE, OTHER, SELFPAY | PROVIDERS: PCP Family Medicine; Visit Provider Specialist | DX: Z96.641 Presence of right artificial hip joint (principal); M16.11 Unilateral primary osteoarthritis, right hip | CPT/HCPCS: 73502; 99213 ==

== ENCOUNTER 2023-05-18 14:31 | Outpatient (CLI) | payer MEDICARE, SELFPAY ==
--- NOTE | 2023-05-18 14:36 | XRR_ITS ---
PROCEDURE INFORMATION: Exam: XR Cervical Spine Exam date and time: 05/18/2023 2:49 PM Age: 68 years old Clinical indication: Radicular pain (radiculopathy); Cervical region; Additional info: Cervical radiculopathy TECHNIQUE: Imaging protocol: Radiologic exam of the cervical spine. Views: 2 or 3 views (AP, LATERAL, SWIMMER'S, AND ODONTOID). COMPARISON: CT cervical spin wo con* [id number] 03/21/2022 8:23 PM FINDINGS: Bones/joints: Normal alignment to T1. No acute fractures or subluxations. There are moderate degenerative changes at articulation of anterior arch of C1 and dens of C2. Mild and moderate degenerative disc disease of several levels of cervical spine and mild degenerative disc disease of upper thoracic spine, as evidenced by vertebral osteophytes, is present. In addition, there is moderate degenerative facet disease of several levels of cervical spine. Soft tissues: Unremarkable. Vasculature: Aorta is mild-moderately calcified. Left > right cervical carotid arteries are mildly calcified. XR/XR cervical spine 3V* [id number] IMPRESSION: No acute fractures or subluxations to T1.
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
== END 2023-05-18 14:32 | disposition home or self-care (01) ==
LOC: RAD 14:32
PROVIDERS: PCP Family Medicine; Visit Provider Family Medicine
DX: M54.12 Radiculopathy, cervical region (principal); R07.9 Chest pain, unspecified; K44.9 Diaphragmatic hernia without obstruction or gangrene; Z95.5 Presence of coronary angioplasty implant and graft; I70.0 Atherosclerosis of aorta
CPT/HCPCS: 71046; 72040; 80053; 80061; 82607; 83036; 83721; 85025; 85651

== ENCOUNTER → 2023-05-27 10:17 | Outpatient (BNVA) | payer MEDICARE, SELFPAY | PROVIDERS: PCP Family Medicine; Referring Provider Family Medicine; Visit Provider Surgery | DX: Z12.11 Encounter for screening for malignant neoplasm of colon (principal); K21.9 Gastro-esophageal reflux disease without esophagitis; K92.2 Gastrointestinal hemorrhage, unspecified; Z80.0 Family history of malignant neoplasm of digestive organs; Z79.899 Other long term (current) drug therapy | CPT/HCPCS: 99204 ==

== ENCOUNTER 2023-06-14 07:04 | Outpatient (CLI) | payer MEDICARE, SELFPAY ==
--- NOTE | 2023-06-14 | ECG_ITS ---
[facility] Test Date: 2023-06-14 Pat Name: Andrew Salinas Department: Room: Gender: Male [employer]ist: : 1955 Requested By: Kleber Sloan Order Number: [id number] Walker MD: Jeff Munguia M.D. Interpretive Statements NAME OF STUDY: LEXISCAN SESTAMIBI STRESS TEST INDICATION: [Chest Pain] Procedure: At the baseline, the blood pressure was 133/91mmHg with a heart rate of 87 bpm. The electrocardiogram showed normal sinus rhythm, normal axis with normal ST and T's. The Lexiscan was infused over a period of 20 seconds. A total of 0.4 mg of Lexiscan was infused. The stress phase was continued for a total of 5 minutes. Heart rate was at the end of stress phase was 95 bpm and a blood pressure of 131/79 mmHg. The EKG at the peak infusion revealed normal sinus rhythm with no significant ST-T wave changes. Sestamibi was injected 20 seconds after the Lexiscan infusion. Blood pressure at the end of recovery phase was 114/90 mmHg with a heart rate of 94 bpm. Conclusion: 1. Normal EKG response to Lexiscan infusion 2. No Lexiscan induced chest pain or cardiac arrhythmia. 3. Normal blood pressure and heart rate response. 4. Sestamibi/sestamibi perfusion scan pending; see separate report. Electronically Signed On 06-17-2023 11:11:34 CDT by Jeff Munguia M.D. [email or web address]
[2023-06-14 08:04] VITALS: BMI 36.6
--- NOTE | 2023-06-14 08:15 | NMCV_ITS ---
NM bettina perf SPECT r/s* [id number] Andrew Salinas Age: 68 Gender: M : 1955 Exam Date: 06/14/2023 08:15 Ordering Phys: Kleber Angeles MD Technologist: JOSE ELIAS Madsen Exam Location: [facility] Indications: CHEST PAIN STRESS TEST Please see separate stress test report in [facility] for full findings IMAGE PROTOCOL Rest/Stress 1 Lexiscan Day Radiopharmaceutical Dose (mCi) Administration Site Administered by Rest: Tc-99m 10.9 IV JOSE ELIAS Erickson Sestamibi Stress:Tc-99m 32.6 IV JOSE ELIAS Erickson Sestamibi Rest: 06/14/2023 60 Discovery 630 Stress: 06/14/2023 30 Discovery 630 0.4mg Lexiscan. Images obtained in supine and prone position. SPECT RESULTS Technical Quality: Excellent Raw Data Analysis: Normal Image Corrections: No attenuation or motion correction applied Summed Stress Score: 7 Summed Rest Score: 6 Summed Difference Score: 2 PERFUSION FINDINGS Moderate area of minimal to moderately decreased tracer uptake were noted in the mid and apical inferior, mid inferolateral, apical lateral and LV apex. Some reversibility was noted in the apical inferior region. FUNCTIONAL RESULTS (calculated via Gated SPECT) Stress Image LV EF (%): 59 Stress EDV (mL):75 TID: 0.91 Stress ESV (mL):31 FUNCTIONAL FINDINGS: Segmental wall motion analysis revealing no gross wall motion abnormalities IMPRESSIONS 1. Myocardial perfusion imaging revealing moderate area of minimal to moderately decreased persistent tracer uptake involving the inferior, inferolateral and apical regions with some reversibility in the apical inferior region, suggesting myocardial scarring and distribution of the right coronary artery/circumflex artery with some areas of shay-infarction ischemia. 2. Normal LV ejection fraction of 59% 3. LV wall motion analysis revealing no gross wall motion abnormalities. 4. Normal LV volume No similar previous studies are available for comparison Dr Libia Ramirez MD FACC (Electronically Signed) Final Date: 14 June 2023 13:18 S
[2023-06-14] MEDS: regadenoson 0.4 Mg/5 ml Syringe 0.400000000000000022 MG IVP (09:50)
[2023-06-14 10:03] VITALS: BP 118/65; PULSE 62
== END 2023-06-14 07:05 | disposition home or self-care (01) ==
PROVIDERS: PCP Family Medicine; Visit Provider Family Medicine
DX: R07.9 Chest pain, unspecified (principal)
CPT/HCPCS: 36415; 78452; 93017; 96374; A9500; J2785

== ENCOUNTER → 2023-07-07 14:11 | Outpatient (BNVA) | payer MEDICARE, SELFPAY | PROVIDERS: PCP Family Medicine; Visit Provider Internal Medicine Cardiovascular Disease | DX: R94.39 Abnormal result of other cardiovascular function study (principal); I25.10 Atherosclerotic heart disease of native coronary artery without angina pectoris; I10 Essential (primary) hypertension; E78.5 Hyperlipidemia, unspecified; F17.220 Nicotine dependence, chewing tobacco, uncomplicated | CPT/HCPCS: 99214 ==

== ENCOUNTER 2023-07-09 06:15 | Outpatient (CLI) | payer MEDICARE, SELFPAY ==
--- NOTE | 2023-07-09 06:30 | USCV_ITS ---
Andrew Salinas Age: 68 Gender: M : 1955 Exam Date: 07/09/2023 06:36 Ordering Phys: Libia Ramirez MD ([email or web address]) Technologist: JONATHAN Exam Location: [facility] [place] Indication: CHEST PAIN/SHORTNESS OF BREATH BP: 120 / 68 HR: 86 Rhythm: Sinus Technical Quality: Adequate MEASUREMENTS (Male / Female) Normal Values 2D ECHO LV Diastolic Diameter PLAX 5.3 cm 4.2 - 5.9 / 3.9 - 5.3 cm IVS Diastolic Thickness 1.6 cm 0.6 - 1.0 / 0.6 - 0.9 cm IVS Systolic Thickness 1.8 cm LVPW Diastolic Thickness 2.1 cm 0.6 - 1.0 / 0.6 - 0.9 cm LVPW Systolic Thickness 3.1 cm LVOT Diameter 2.0 cm LV Ejection Fraction 2D Teich 64.3 % LV Ejection Fraction MOD 2C 51.6 % LV Ejection Fraction 2C AL 56.4 % LA Diameter 3.4 cm RA Systolic Volume 4C AL 21.8 ml RA Systolic Volume 4C MOD 22.0 ml Aorta at Sinotubular Diameter 2.6 cm M-MODE LA Ao Ratio MM 0.9 AV Cusp Separation MM 2.0 cm DOPPLER AV Peak Velocity 129.0 cm/s LVOT Peak Velocity 80.0 cm/s AV Area Cont Eq vti 2.6 cm squared AV Area Cont Eq pk 1.9 cm squared MV Peak Velocity 86.0 cm/s MV Area PHT 3.2 cm squared Mitral E to A Ratio 0.9 TR Peak Velocity 256.0 cm/s TR Peak Gradient 26.2 mmHg TR Mean Velocity 225.0 cm/s TR Mean Gradient 20.6 mmHg TR Velocity Time Integral 85.5 cm TV Peak E Velocity 63.0 cm/s Right Atrial Pressure 3.0 mmHg Pulmonary Artery Systolic Pressu 29.2 mmHg PV Peak Velocity 102.0 cm/s RV Ejection Time 0.3 s FINDINGS Left Ventricle Normal LV size with a borderline low ejection fraction of 50 to 55%. Relative hypokinesia of the septum. Slightly dyskinetic basal inferior wall segment. Grade I/IV diastolic dysfunction (abnormal relaxation filling pattern), normal to mildly elevated filling pressures. Right Ventricle The right ventricle is normal in size and function. Right Atrium The right atrium is normal in size. Left Atrium The left atrium is normal in size. Mitral Valve Mild mitral valve regurgitation. Aortic Valve No gross abnormalities noted Tricuspid Valve Trace tricuspid valve regurgitation. Pulmonic Valve No gross abnormalities noted Pericardium Normal pericardium without effusion. Aorta Normal ascending aorta dimension. IVC The inferior vena cava appears normal. CONCLUSIONS Normal LV size with a borderline low ejection fraction of 50 to 55%. Relative hypokinesia of the septum. Slightly dyskinetic basal inferior wall segment. Grade I/IV diastolic dysfunction (abnormal relaxation filling pattern), normal to mildly elevated filling pressures. Trace tricuspid valve regurgitation. Mild mitral valve regurgitation. There is no pericardial effusion. There are no intracardiac masses. Dr Libia Ramirez MD FACC (Electronically Signed) Final Date: 12 July 2023 11:07 S
== END 2023-07-09 06:16 | disposition home or self-care (01) ==
LOC: RAD 06:15
PROVIDERS: PCP Family Medicine; Visit Provider Internal Medicine Cardiovascular Disease
DX: I34.0 Nonrheumatic mitral (valve) insufficiency (principal)
CPT/HCPCS: 93306

== ENCOUNTER 2023-07-28 05:55 | Outpatient (CLI) | payer MEDICARE, SELFPAY ==
[2023-07-28] VITALS (73 sets, daily range): BP systolic 127–165; BP diastolic 84–100; PULSE 73–100; RESP 7–27; TEMP 36.4–36.9; O2SAT 89–99; BMI 35.6
--- NOTE | 2023-07-28 06:00 | XACV_ITS ---
Ht: 165 cm Wt: 97 kg BSA: 2.15 m2 Gender: Male : 1955 Any Known Allergies: No known allergies Exam Priority: Routine Procedure(s): Procedure Description: Diagnostic procedure Procedure Description: Left Heart Catheterization Procedure Description: Left ventriculography Procedure Description: Coronary Angiography James SLAUGHTER; Diagnostic Cath Status: Elective Diagnostic Findings * The left main is a medium caliber vessel with no significant stenotic lesions. * The left and descending artery is a medium caliber vessel which appears to taper off towards the LV apex. Proximal and the mid LAD was found to have mild diffuse intimal irregularities. The artery gives off multiple diagonal branches which were found to be very tortuous. No [place] is noted lesions were noted.. * The left circumflex artery is a medium caliber vessel which appears to trifurcated proximally. All these branches were found to have minimal intimal irregularities. One of the obtuse marginal branches was found to have around 60 to 70% extrinsic compression suggesting a myocardial bridge. * The right coronary artery is a medium caliber dominant vessel which was found to have minimal intimal irregularities in the mid segment. The PDA branch was found to have 40 to 50% diffuse irregular narrowing throughout the vessel. The PLV range was found to have minimal intimal irregularities. Conclusions 1. 68-year-old white male with a history of atherosclerotic heart disease and previous PCI in 2007, presenting with complaints of atypical chest symptoms, dyspnea on exertion and easy fatigability. He had a Myocardial perfusion imaging revealing areas of reversible and reversible perfusion defects in the distribution of the right coronary artery/circumflex artery. In view of the patient's ongoing symptoms, in order to further evaluate his coronary status, a cardiac catheterization was recommended. Patient underwent left heart catheterization with a left and right coronary angiogram and LV angiogram today. The findings are as follows. 2. 1. No significant lesions in the left main. 2. Mild diffuse disease in all the 3 coronary arteries 3. LV ejection fraction around 50%. Mild diffuse hypokinesia of the LV apex. LVEDP of 15 mmHg. Diagnostic RX Recommendation: medical therapy and/or counseling LV EDP: 15 mmHg Ventriculography Ejection Fraction: 50.0 % Left Ventriculography Findings: * The LV gram was performed in the REAGAN projection. The LV cavity was found to be of normal size. There is mild diffuse hypokinesia of the LV apex. The ejection fraction was around 50%. No significant mitral valve prolapse or mitral regurgitation. No filling defects were noted. The LVEDP was 15 mmHg. Pressures Phase:Rest AO : 160 / 99 ( 122 ) @ 8:33:00 AM 148 / 80 ( 112 ) @ 8:47:00 AM 150 / 84 ( 113 ) @ 8:47:00 AM LV : 151 / -10 / 14 @ 8:46:00 AM 142 / -9 / 16 @ 8:47:00 AM 141 / -11 / 15 @ 8:47:00 AM Valves Phase:DefaultPhase AV : 0.0 @ 8:04:38 AM AV Mean Gradient: 0.0 @ 8:04:38 AM 0.0 @ 8:04:38 AM Clinical Evaluation EBL: 5mL-10mL Procedural Details Procedure Consent Obtained. Pre-Procedure Time Out. Identified patient by full name and date of as verbalized by the patient/guarantor. Does the consent match the physician's order: Yes. Accurate & Complete Informed Consent: Yes. Inpatient/Outpatient History & Physical on Chart: Yes. If H&P is completed, is and addenduem needed: No; If yes, is the addendum complete: N/A. Visualize and Verify Site with Patient/Guarantor: N/A. Relevant Radiology Images available: N/A. Pre-op teaching completed and patient verbalized understanding. The risks, benefits, and alternatives of sedation and/or procedure were discussed by physician. The patient agrees to continue. Procedure started. Correct patient, site and procedure confirmed by cath team. PERRLA. Strong, equal hand outsole splicer bilaterally. Lungs clear x 5 lobes. IV Site on Arrival: 20 gauge in the right anticubital. IV Fluids: 0.9% NaCl at KVO. 0 mL infused prior to optical laboratory technician. Pre Procedural Pulses: bilateral dorsalis pedis was 3+. Pre Procedural Pulses: bilateral posterior tibial was 1+. Pre Procedural Pulses: bilateral radial was 3+. Oxygen started at 2liters/min via nasal canula. Physician arrived. [facility] Clinical Fraility Score: 4: Vulnerable. Nurses' Association Counselor Indications: Suspected CAD. Chest Pain Symptom Assessment: Typical Angina Symptoms. Cardiovascular Instability: No. right groin was prepped with chloroprep then draped in the usual sterile fashion. right radial was prepped with chloroprep then draped in the usual sterile fashion. Baseline sample Acquired. HR: 90 BPM. Equipment: 6F - Radial. Cardiac Cath Pack. ACIST Manifold Kit Model BT 2000. Heparinized Saline (2 units/mL), 1000 mL bag. Physician scrubbed in. Immediate Pre-Procedure Time Out. Correct Patient: Yes; Correct Procedure: Yes; Correct Site: Yes; Correct Patient Position: Yes; Correct Supplies: Yes; Dried Flammable Prep: Yes; Blood Products Available: N/A;. Lidocaine 1% infiltrated to the right radial. Arterial access obtained. Unable to advance wire. Wire and needle removed. Manual pressure held by physician at access site. Arterial access obtained. Unable to advance wire. Wire and needle removed. Manual pressure held by physician at access site. Lidocaine 1% infiltrated to the right groin. Arterial access obtained with micropuncture set. A 5 greek JL4 catheter in over wire. Unable to seat catheter. Catheter removed over the exchange wire. A 5 greek JL4.5 catheter in over wire. Multiple views taken of left coronary artery. Catheter removed over the exchange wire. A 5 greek JR4 catheter in over wire. Multiple views taken of right coronary artery. Catheter removed over the exchange wire. A 5 greek Angled Pig catheter in over wire. EDP Sample taken: LV 151/-11,14; HR: 85 BPM; SpO2: 97%. LV gram performed in REAGAN @ 10 mL/second for a total of 30 mL. EDP Sample taken: LV 142/-10,16; HR: 82 BPM; SpO2: 97%. Pullback taken: LV 141/-12,15; AO 148/80(112); Mean: 0mmHg, Peak to Peak: 0mmHg, SEP: 7sec/min; HR: 84 BPM; SpO2: 96%. Catheter removed over the exchange wire. Physician scrubbed out. A Suture was successful obtaining hemostatsis at the Right Femoral artery insertion site. Sheath(s) sutured into position with 2-0 silk and sterile 4x4's and Op-site applied over the site. No oozing or signs and symptoms of hematoma noted. Arterial sheath flushed and connected to tranducer and pressure bag with heparinized saline. Post Procedure: Pulses reassessed and unchanged. PERRLA. Strong, equal hand outsole splicer bilaterally. No VTE prophylaxis required. Medication's Wasted: Lidocaine 1% = 9 mL. Medication's Wasted: Verapamil = 5 mg. Medication's Wasted: Nitro = 49.95 mg. Medication's Wasted: Heparin = 2500 units. Medication's Wasted: Other = versed 1 mg. Medication's Wasted: Other = fentanyl 25 mcg. Post-op diagnosis: mild CAD, cardiomyopathy. Total IV fluids: 50 mL. Complications: none. Estimated blood loss: 5mL-10mL. Responsiveness - Normal response to verbal stimuli; alert and oriented, PERRLA. Airway - Unaffected, no intervention required; spontaneous ventilation. Circulation: W/N/L, pulses unchanged. Nausea/Vomiting: No. Procedure completed. Patient transferred by bed to 1st floor. Vital chart was stopped. Access Site Site: Right Femoral artery Sheath Size: 6 Fr Hemostasis Method: Suture Hemostasis Success: Successful Procedure Medications Start: 7:10 AM Stop: 7:10 AM Medication: Versed Amount: 1 mg Route: I.V. Start: 7:20 AM Stop: 7:20 AM Medication: Fentanyl Amount: 25 mcg Route: I.V. Start: 7:21 AM Stop: 7:21 AM Medication: Nitrogylcerin Amount: 50 mcg Start: 7:29 AM Stop: 7:29 AM Medication: Fentanyl Amount: 25 mcg Route: I.V. Start: 7:36 AM Stop: 7:36 AM Medication: Heparin Amount: 1500 units Route: I.V. Start: 7:37 AM Stop: 7:37 AM Medication: Lopressor (metoprolol) Amount: 5 mg Route: I.V. Start: 7:40 AM Stop: 7:40 AM Medication: Fentanyl Amount: 25 mcg Route: I.V. I, the attending physician, have reviewed and verified all procedure medications. Yes, all medications given per verbal order History/Risk Factors Hypertension: Yes Dyslipidemia: Yes Peripheral Arterial Disease (PAD): No Myocardial Infarction (IA): No Obesity: Yes Renal Disease: No Prior Interventions PCI: Yes CABG: No Valve Surgery: No Date of PCI: 08/24/2007 Report Signatures Finalized by Dr Libia Ramirez MD [facility] on 07/29/2023 06:37 PM
[2023-07-28] MEDS: diphenhydrAMINE 50 mg Capsule PO (06:20)
[2023-07-28 06:28] LABS: Basophils # 0.1 10^3/uL (0.0-0.1); Basophils % 1.3 %; Eosinophils # 0.3 10^3/uL (0.0-0.8); Hematocrit 47.7 % (37-53); Lymphocytes # 1.5 10^3/uL (0.8-4.8); Lymphocytes % 21.1 %; Mean Corpuscular HGB Conc 33.1 g/dL (30-55); Mean Corpuscular Hemoglobin 29.9 pg (27-33); Mean Corpuscular Volume 90.2 fl (82-101); Mean Platelet Volume 9.9 fL (7.4-10.4); Monocytes # 0.8 10^3/uL (0.2-0.9); Monocytes % 11.7 %; Neutrophils # 4.29 10^3/uL (1.8-7.7); Neutrophils % 61.5 %; Nucleated Red Blood Cells % 0 %; Platelet Count 280 10^3/cmm (157-399); Red Blood Count 5.29 10^6/uL (3.85-5.65); Red Cell Distribution Width 12.9 % (12.1-15.1); White Blood Count 6.98 10^3/uL (3.29-11.43)
[2023-07-28 06:44] LABS: Anion Gap 12.1 (5-19); Blood Urea Nitrogen 8 mg/dL (8-23); Calcium 8.8 mg/dL (8.5-10.5); Carbon Dioxide 29 mmol/L (22-29); Chloride 100 mmol/L (98-107); Glomerular Filtration Rate 73.9 mL/min (90-130); Glucose 177 mg/dL (65-115); Osmolality Calculated 287 mOsm/kg (285-295); Potassium 4.1 mmol/L (3.5-5.1); Sodium 137 mmol/L (136-145)
--- NOTE | 2023-07-28 07:03 | P.HPUD_ITS ---
Surgery/Procedure H&P Update DATE OF PROCEDURE: July 28, 2023 DATE H&P PERFORMED: 07/07/23 H&P UPDATE INFORMATION: I have reviewed H&P completed within last 30 days, I have examined patient prior to procedure and No changes to prior documentation PREOP DIAGNOSIS: ASHD PRIMARY INDICATION FOR PROCEDURE: Chest pain/abnormal Myocardial perfusion imaging. History of ASHD and previous PCI PLANNED PROCEDURE: Operation Date: 07/28/23 07:00 Proposed Procedures p Cardiac Catheterization(Left) - Libia Ramirez MD PATIENT REASSESSED PRIOR TO SEDATION, WITH NO CHANGE NOTED: Yes PHYSICAL EXAM: alert, oriented x 3, clear to auscultation bilaterally and regular rate & rhythm AIRWAY EVAL/ANESTHESIA PLAN: normal airway, see other exam findings, ASA III, Monitored Anesthesia, Local Anesthesia, Risks, benefits & alternatives of sedation and/or procedure discussed and Patient agrees to continue as planned ADDITIONAL INFORMATION: The risk of bleeding, hematoma, vascular injury, myocardial infarction, myoca rdial perforation, malignant cardiac arrhythmias ,CVA, renal failure and other concomitant complications were explained in detail. Answered all the questions the patient to their satisfaction. Patient also was told that if he requires complex coronary intervention or coronary artery bypass surgery, he may need to be transferred to another facility. Patient understood this well and consented to proceed. Patient's was present during this discussion
--- NOTE | 2023-07-28 09:05 | SUR.EXTENDED ---
Patient transferred via bed to room 112-2 with spouse at bedside.
--- NOTE | 2023-07-28 09:54 | PC.NURSE ---
received from cardiac technical laboratory asst at 0920.report received.pt is alert and oriented x 4.denies pain at present.sr on monitor.right femoral arterial sheath intact to pressurized system.no hematoma noted.right leg is warm to touch and with brisk capillary refill.palpable dp pulse noted.pt instructed in activity restrictions s/p femoral artery cath..and instructed to notify staff for any bleeding,pain,numbness,sob,or for any concerns at all.pt verb understanding of instructions
[2023-07-28] MEDS: losartan 50 mg Tablet PO (10:05)
[2023-07-28] MEDS: pantoprazole DR 40 mg Tablet PO (10:06)
[2023-07-28] MEDS: cyanocobalamin 1,000 mcg Tablet 1000 MCG PO (10:06)
[2023-07-28] MEDS: clopidogrel 75 mg Tablet PO (10:06)
[2023-07-28] MEDS: aspirin 81 mg EC Tablet PO (10:06)
--- NOTE | 2023-07-28 11:00 | PC.NURSE ---
right femoral sheath pulled at 1020.manual pressure held x 20 min.vss through-out procedure.no hematoma noted.site dressed with 2x2 gauze and secured with biocclusive drsg.pt instructed to notify staff for any bleeding,pain,numbness,sob,or for any concerns at all.pt verb understanding of instructions
--- NOTE | 2023-07-28 18:47 | PC.NURSE ---
discharge instructions given and explained.pt verb understanding of instructions.discharged via w/c to exit at this time.spouse to drive pt home.
== END 2023-07-28 18:50 | disposition home or self-care (01) ==
LOC: CCL 05:55 → CSU 09:25
PROVIDERS: PCP Family Medicine; Visit Provider Internal Medicine Cardiovascular Disease
DX: I25.10 Atherosclerotic heart disease of native coronary artery without angina pectoris (principal); I10 Essential (primary) hypertension; E78.5 Hyperlipidemia, unspecified; E66.9 Obesity, unspecified; Z68.35 Body mass index [BMI] 35.0-35.9, adult; Z79.82 Long term (current) use of aspirin; F17.220 Nicotine dependence, chewing tobacco, uncomplicated
CPT/HCPCS: 36415; 80048; 85025; 93458; 96374; 96375; 99152; 99153; C1769; C1887; C1894; J1644; J2250; J3010; J3490; J7030; Q0163; Q9967

== ENCOUNTER → 2023-08-09 11:56 | Outpatient (BNVA) | payer MEDICARE, SELFPAY | PROVIDERS: PCP Family Medicine; Visit Provider Family Medicine | DX: R32 Unspecified urinary incontinence (principal) | CPT/HCPCS: 81000; 87086 ==

== ENCOUNTER → 2023-08-11 12:51 | Outpatient (BNVA) | payer MEDICARE, SELFPAY | PROVIDERS: PCP Family Medicine; Visit Provider Nurse Practitioner Family | DX: Q24.5 Malformation of coronary vessels (principal) | CPT/HCPCS: 99213 ==

== ENCOUNTER → 2024-04-13 11:36 | Outpatient (BNVA) | payer MEDICARE, SELFPAY | PROVIDERS: PCP Family Medicine; Visit Provider Family Medicine | DX: Z00.00 Encounter for general adult medical examination without abnormal findings (principal); E53.8 Deficiency of other specified B group vitamins; E11.9 Type 2 diabetes mellitus without complications; Z13.220 Encounter for screening for lipoid disorders; Z51.81 Encounter for therapeutic drug level monitoring; E55.9 Vitamin D deficiency, unspecified | CPT/HCPCS: 80053; 80061; 82306; 82607; 83036; 83721; 85025 ==

== ENCOUNTER → 2024-07-17 08:16 | Outpatient (BNVA) | payer MEDICARE, SELFPAY | PROVIDERS: PCP Family Medicine; Visit Provider Family Medicine | DX: E11.9 Type 2 diabetes mellitus without complications (principal); Z13.220 Encounter for screening for lipoid disorders; E55.9 Vitamin D deficiency, unspecified | CPT/HCPCS: 80061; 82306; 83036 ==

== ENCOUNTER → 2024-11-15 08:19 | Outpatient (BNVA) | payer MEDICARE, SELFPAY | PROVIDERS: PCP Family Medicine; Visit Provider Family Medicine | DX: E11.9 Type 2 diabetes mellitus without complications (principal); Z51.81 Encounter for therapeutic drug level monitoring | CPT/HCPCS: 80048; 83036; 85025 ==